=== PATIENT | female | born 1975 | race Caucasian/White ===

== ENCOUNTER 2024-09-26 09:55 | Outpatient (AMB) | payer OTHER, SELFPAY ==
[2024-09-26 10:04] VITALS: BP 108/70; PULSE 73; O2SAT 98; BMI 37.7
--- NOTE | 2024-09-26 10:04 | MHC.PC.OV ---
Vital Signs 09/26/24 10:04 Height 5 ft 3 in Weight 213 lb BMI 37.7 BP 108/70 Blood Pressure Location Lt brachial Position Sitting Pulse 73 Pulse Source Pulse Oximeter Pulse Oximetry (%) 98 Oxygen Delivery Method Room Air Intake Visit Reasons: establish care Allergies No Known Allergies Allergy (Verified 09/26/24 10:24) Medication List - Last Reconciled 09/26/24 by Elinor Willis PA-C estradiol (Yuvafem) 10 mcg vaginal 2XW Tobacco use date assessed: 09/26/24 Dental Screening Dental Screen Date: 09/26/24 Did you have a dental visit in the last 12 months?: Yes Did you have a dental problem in the last 6 months where you did not have access to dental care?: No Was dental information given to patient?: Patient has dentist HPI establish care HPI Details 49 year old female coming to the office for the 1st time. Patient states she follows with gynecology for routine Pap smears. She also follows with a weight loss doctor status post gastric sleeve who wants to start her on Mounjaro. She has not yet had a colonoscopy but was sent the Cologuard box and has not yet completed this. She mentioned she has migraines with the weather changes that typically resolve with Tylenol. She also mentioned she fell 2 years ago on ice and has had chronic back pain since it has been following with [facility] and working with physical therapy and massage therapy. She was previously on gabapentin but did not like the way she felt that this medication so is no longer taking it. [facility] Medical History (Updated 09/26/24 @ 13:13 by Elinor Willis PA-C) Asthma TIA (transient ischemic attack) Surgical History (Updated 09/26/24 @ 10:31 by Elinor Willis PA-C) Hx of cholecystectomy H/O gastric sleeve Family History (Updated 09/26/24 @ 10:34 by Elinor Willis PA-C) Father Melanoma Lewy body dementia Social History Housing: House Patient Tobacco Use Status: Never used Tobacco service: No Current occupational status: employed Cognitive needs: No Hearing needs: No Vision needs: No Female Reproductive History Menstrual control method: pills Questionnaire PHQ-9 Over the last 2 weeks, how often have you been bothered by any of the following problems? 1. Little interest or pleasure in doing things: not at all 2. Feeling down, depressed, or hopeless: not at all 3. Trouble falling or staying asleep, or sleeping too much: not at all 4. Feeling tired or having little energy: several days 5. Poor appetite or overeating: several days 6. Feeling bad about yourself - or that you are a failure or have let yourself or your family down: not at all 7. Trouble concentrating on things, such as reading the newspaper or watching television: not at all 8. Moving or speaking so slowly that other people could have noticed. Or the opposite - being so fidgety or restless that you have been moving around a lot more than usual: not at all 9. Thoughts that you would be better off or of hurting yourself in some way: not at all Total score: 2 Depression Screening Interpretation: Negative Depression Screening Done: Yes 12098 - PHQ-9 Billing: Yes Source: Developed by Drs. Michael Carpenter, Medina Grigsby, Gilberto White and colleagues, with an educational israel from [employer]. Thrive Questionnaire Date Thrive assessed: 09/24/24 I am a: Patient What is your living situation today?: I have a steady place to live Within the past 12 months, did the food you bought not last and you didn't have the money to get more?: Never true Within the past 12 months, did you worry whether your food would run out before you got money to buy more?: Never true Do you have trouble paying for medicines?: No Do you have trouble getting transportation to medical appointments?: No Do you have trouble paying your heating and electricity bill?: No Do you have trouble taking care of your child, family member or friend?: No Do you have trouble with day-to-day activities such as bathing, preparing meals, shopping, managing finances, etc.?: No Are you currently unemployed and looking for a job?: No Are you interested in more education?: No Please select the resources that you would like help with: None Currently or been in a relationship where the following occur: No concerns reported THRIVE Score: 0 AUDIT C Alcohol Use Questionnaire (AUDIT-C) 1. How often do you have a drink containing alcohol?: Monthly or less 2. How many drinks containing alcohol do you have on a typical day when you are drinking?: 1 or 2 3. How often do you have six or more drinks on one occasion?: Never Total Score: 1 WILLY-7 AMB Questionnaire WILLY-7 Date WILLY - 7 assessed: 09/26/24 Feeling nervous, anxious, or on edge: 1 = Several days Not being able to stop or control worryin = Not at all Worrying too much about different things: 0 = Not at all Trouble relaxin = Several days Being so restless that it is hard to sit still: 0 = Not at all Becoming easily annoyed or irritable: 1 = Several days Feeling afraid as if something awful might happen: 0 = Not at all Total WILLY-7 score (0-4 normal; 5-9 mild; 10-14 moderate; 15-21 severe): 3 Source: Developed by Drs. Michael Carpenter, Medina Grigsby, Gilberto White and colleagues, with an educational israel from [employer]. WILLY-7 Assessment Billing WILLY-7 Assessment Tool: WILLY-7 Assessment 55057 Review of Systems Const Denies body aches, Denies chills, Denies fever(s), Reports headache(s) and Denies poor appetite Eyes Reports no additional complaints ENT Denies dizziness and Reports headache(s) Card Denies chest pain, Denies syncope, Denies edema, Denies irregular heart rhythm, Denies lightheadedness and Denies dyspnea Resp Denies cough and Denies dyspnea GI Denies abdominal pain, Denies constipation, Denies diarrhea, Denies nausea and Denies vomiting Reports no additional complaints Musc Reports no additional complaints, Denies abnormal gait and Reports back pain Skin/Breast Reports system reviewed and no additional complaints, except as documented Neuro Denies abnormal gait, Denies dizziness, Denies syncope and Reports headache(s) Psych Reports no additional complaints Physical exam (Primary Care) Vital Signs: Last Vital Signs Pulse 73 09/26/24 10:04 BP 108/70 09/26/24 10:04 Pulse Ox 98 09/26/24 10:04 Oxygen Delivery Method Room Air 09/26/24 10:04 BMI result Body Mass Index 37.7 Tobacco/Smoking Status: Tobacco use Status Tobacco use date assessed 09/26/24 09/26/24 10:07 Patient Tobacco Use Status Never used Tobacco 09/26/24 10:07 PHQ-9: PHQ-9 Score PHQ-9: Total score 2 09/26/24 10:18 Depression Screening Interpretation: Negative Thrive Assessment: Date of Thrive Assessment Date Thrive assessed 09/24/24 09/26/24 10:07 Currently or been in a relationship where the following occur: No concerns reported Const General: cooperative, healthy appearing, comfortable and no acute distress Orientation/consciousness: patient oriented x3 HENMT Head: Yes normocephalic Ears: hearing grossly normal bilaterally General nose exam: Normal external nose present Eyes General: appearance normal, both eyes and all related structures Conjunctivae: conjunctivae normal Neck Neck: Yes full ROM and Yes no lymphadenopathy Resp Effort & Inspection: normal respiratory effort Auscultation: clear to auscultation bilaterally, no crackles, no rales, no rhonchi and no wheezes Cardio Rate: regular rate Rhythm: regular rhythm Skin General skin exam: no rashes or lesions noted Neuro General: patient oriented x3 Gait exam (Neuro): Normal gait present Extrem General: Yes normal to inspection, Yes full ROM and No edema Psych Affect: normal affect Attitude: cooperative Insight: Good insight present (Psych) Judgement: Good judgement present (Psych) Coding Level of Care Code New Pt Level 3 (20594) Diagnoses Vaginal dryness N89.8 Vitamin D deficiency E55.9 Back pain M54.9 Impaired glucose tolerance R73.02 Obesity E66.9 Screening for colorectal cancer Z12.11; Z12.12 Additional Codes WILLY-7 Assessment Billing - WILLY-7 Assessment Tool: IWLLY-7 Assessment 54469 ([id number]) PHQ-9 - 08376 - PHQ-9 Billing: Yes ([id number]) Assessment & Plan Assessment & Plan (1) Vaginal dryness: Code(s): N89.8 - Other specified noninflammatory disorders of vagina Category: Medical Plan: Continue to follow with gynecology. Currently on oral estradiol. (2) Vitamin D deficiency: Code(s): E55.9 - Vitamin D deficiency, unspecified Category: Medical Plan: Was told by her previous PCP that she has vitamin-D deficiency ordered for updated blood work. (3) Back pain: Code(s): M54.9 - Dorsalgia, unspecified Category: Medical Plan: Continue to follow with [facility] is due to finish physical therapy soon and we will re-evaluate at that time. (4) Impaired glucose tolerance: Code(s): R73.02 - Impaired glucose tolerance (oral) Category: Medical Plan: Decrease the amount of carbohydrates such as pasta, bread, rice, and potatoes and limit the amount of sweets. Although fruits are generally healthy they should be eaten in moderation as they are still high in sugar. Need to work with a and p mechanic through weight loss clinic. (5) Obesity: Code(s): E66.9 - Obesity, unspecified Category: Medical Plan: Healthy diet and regular exercise is encouraged. Continue to follow with weight loss clinic. (6) Screening for colorectal cancer: Code(s): Z12.11 - Encounter for screening for malignant neoplasm of colon; Z12.12 - Encounter for screening for malignant neoplasm of rectum Category: Medical Plan: Strongly advised patient complete the Cologuard box given to her earlier this year Plan This note was constructed using voice recognition software. While every effort has been made to ensure accuracy and catalyst operator, still areas may have been included sometimes these areas may affect the content or meeting of the given symptoms. Total time spent caring for the patient today was 30 minutes. This includes time spent before the visit reviewing the chart, time spent during the visit, and time spent after the visit and documentation. Orders: Orders Vitamin B12 and Folate Today Z00.00 - Encounter for general adult medical examination without abnormal findings Vitamin D 25-OH (D2 and D3) Today Z00.00 - Encounter for general adult medical examination without abnormal findings Complete Blood Count Auto Diff Today Z00.00 - Encounter for general adult medical examination without abnormal findings TSH reflex Free T4 Today Z00.00 - Encounter for general adult medical examination without abnormal findings Free T4 (Free Thyroxine) Today Z00.00 - Encounter for general adult medical examination without abnormal findings
== END 2024-09-26 10:46 | disposition home or self-care (01) ==
DX: N89.8 Other specified noninflammatory disorders of vagina (principal); E66.9 Obesity, unspecified; Z68.37 Body mass index [BMI] 37.0-37.9, adult; E55.9 Vitamin D deficiency, unspecified; M54.9 Dorsalgia, unspecified; R73.02 Impaired glucose tolerance (oral); Z12.11 Encounter for screening for malignant neoplasm of colon; Z12.12 Encounter for screening for malignant neoplasm of rectum

== ENCOUNTER 2024-09-26 09:55 | Outpatient (REF) | payer OTHER, SELFPAY ==
[2024-09-26 12:06] LABS: Free T4 (Free Thyroxine) 0.92 ng/dL (0.71-1.85); TSH reflex Free T4 1.98 uIU/mL (0.32-4.0)
[2024-09-26 12:19] LABS: Folate 11.5 ng/mL (> or = 4.0); Vitamin B12 354 pg/mL (200-900)
[2024-10-03 17:24] LABS: Vitamin D 25-OH, D2 <4 ng/mL; Vitamin D 25-OH, D3 34 ng/mL; Vitamin D 25-OH, Total 34 ng/mL (30-100)
== END 2024-09-26 09:56 | disposition home or self-care (01) ==
LOC: HO.LAB 09:55
DX: N89.8 Other specified noninflammatory disorders of vagina (principal); E55.9 Vitamin D deficiency, unspecified; M54.9 Dorsalgia, unspecified; R73.02 Impaired glucose tolerance (oral); E66.9 Obesity, unspecified; Z68.37 Body mass index [BMI] 37.0-37.9, adult; Z00.00 Encounter for general adult medical examination without abnormal findings
CPT/HCPCS: 36415; 82306; 82607; 82746; 84439; 84443; 96127

== ENCOUNTER 2024-12-30 08:35 | Outpatient (AMB) | payer OTHER, SELFPAY ==
--- NOTE | 2024-12-30 08:49 | MHC.PC.OV ---
Vital Signs 12/30/24 08:52 Height 5 ft 3 in Weight 187 lb 2 oz BMI 33.1 BP 130/66 Blood Pressure Location Lt brachial Position Sitting Pulse 85 Pulse Source Pulse Oximeter Temp 97.1 F Temp Source Skin Pulse Oximetry (%) 98 Oxygen Delivery Method Room Air Intake Visit Reasons: Annual Exam Intake Note: Patient is here today for a physical. Care Transitions Nurse Required: No Freelance Recruiter: Not Required per policy Accompanied by: Self / Same As Patient Allergies No Known Allergies Allergy (Verified 12/30/24 09:06) Medication List - Last Reconciled 12/30/24 by Elinor Willis PA-C estradiol (Yuvafem) 10 mcg vaginal 2XW ondansetron 4 mg PO Q8H tirzepatide (Mounjaro) 5 mg subcut QWEEK Tobacco use date assessed: 12/30/24 Dental Screening Dental Screen Date: 12/30/24 Did you have a dental visit in the last 12 months?: Yes Did you have a dental problem in the last 6 months where you did not have access to dental care?: No Was dental information given to patient?: Patient has dentist HPI Annual Exam HPI Details 49-year-old female with past medical history impaired glucose tolerance, obesity, vitamin-D deficiency, vaginal dryness last seen 09/2024 coming in for annual exam. Patient tells us today she recently was started on Mounjaro 2.5 mg through a med spa and has been following with a provider every 4 weeks for this. She does mentioned she has been having increased lightheadedness and dizziness since starting the Mounjaro and states she does not drink enough water or eat enough throughout the day. [facility] Medical History Asthma TIA (transient ischemic attack) Surgical History Hx of cholecystectomy H/O gastric sleeve Family History Father Melanoma Lewy body dementia Social History Housing: House Alcohol intake: never Patient Tobacco Use Status: Never used Tobacco e-Cigarette/Vaping Use: Never Used Second Hand Smoke Exposure: No service: No Current occupational status: employed Cognitive needs: No Hearing needs: No Vision needs: No Questionnaire PHQ-9 Over the last 2 weeks, how often have you been bothered by any of the following problems? 1. Little interest or pleasure in doing things: not at all 2. Feeling down, depressed, or hopeless: not at all 3. Trouble falling or staying asleep, or sleeping too much: several days 4. Feeling tired or having little energy: several days 5. Poor appetite or overeating: several days 6. Feeling bad about yourself - or that you are a failure or have let yourself or your family down: not at all 7. Trouble concentrating on things, such as reading the newspaper or watching television: not at all 8. Moving or speaking so slowly that other people could have noticed. Or the opposite - being so fidgety or restless that you have been moving around a lot more than usual: not at all 9. Thoughts that you would be better off or of hurting yourself in some way: not at all Total score: 3 Depression Screening Interpretation: Positive Depression Screening Follow-up: Existing condition and Declines treatment Depression Screening Done: Yes Source: Developed by Drs. Michael Carpenter, Medina Grigsby, Gilberto White and colleagues, with an educational israel from [employer]. Thrive Questionnaire Date Thrive assessed: 12/23/24 I am a: Patient What is your living situation today?: I have a steady place to live Within the past 12 months, did the food you bought not last and you didn't have the money to get more?: Never true Within the past 12 months, did you worry whether your food would run out before you got money to buy more?: Never true Do you have trouble paying for medicines?: No Do you have trouble getting transportation to medical appointments?: No Do you have trouble paying your heating and electricity bill?: No Do you have trouble taking care of your child, family member or friend?: No Do you have trouble with day-to-day activities such as bathing, preparing meals, shopping, managing finances, etc.?: No Are you currently unemployed and looking for a job?: No Are you interested in more education?: No Please select the resources that you would like help with: None Currently or been in a relationship where the following occur: No concerns reported THRIVE Score: 0 AUDIT C Alcohol Use Questionnaire (AUDIT-C) 1. How often do you have a drink containing alcohol?: Monthly or less 2. How many drinks containing alcohol do you have on a typical day when you are drinking?: 1 or 2 3. How often do you have six or more drinks on one occasion?: Never Total Score: 1 WILLY-7 AMB Questionnaire WILLY-7 Date WILLY - 7 assessed: 12/30/24 Feeling nervous, anxious, or on edge: 1 = Several days Not being able to stop or control worryin = Not at all Worrying too much about different things: 1 = Several days Trouble relaxin = Several days Being so restless that it is hard to sit still: 0 = Not at all Becoming easily annoyed or irritable: 1 = Several days Feeling afraid as if something awful might happen: 0 = Not at all Total WILLY-7 score (0-4 normal; 5-9 mild; 10-14 moderate; 15-21 severe): 4 Source: Developed by Drs. Michael Carpenter, Medina Grigsby, Gilberto Whtie and colleagues, with an educational israel from [employer]. WILLY-7 Assessment Billing WILLY-7 Assessment Tool: WILLY-7 Assessment 60459 Review of Systems Const Denies body aches, Denies chills, Denies fever(s), Denies headache(s) and Denies poor appetite Eyes Reports no additional complaints and Reports blurry vision ENT Denies dysphagia, Denies dizziness, Denies headache(s) and Denies odynophagia Card Denies chest pain, Denies syncope, Denies edema, Denies irregular heart rhythm, Denies lightheadedness and Denies dyspnea Resp Denies cough and Denies dyspnea GI Denies abdominal pain, Reports constipation, Denies dysphagia, Denies diarrhea, Reports nausea, Denies odynophagia and Denies vomiting Reports no additional complaints Musc Reports no additional complaints and Denies abnormal gait Skin/Breast Reports system reviewed and no additional complaints, except as documented Neuro Denies abnormal gait, Denies dizziness, Denies syncope and Denies headache(s) Psych Reports no additional complaints Physical exam (Primary Care) Vital Signs: Last Vital Signs Temp 97.1 F 12/30/24 08:52 Pulse 85 12/30/24 08:52 BP 130/66 12/30/24 08:52 Pulse Ox 98 12/30/24 08:52 Oxygen Delivery Method Room Air 12/30/24 08:52 BMI result Body Mass Index 33.1 Tobacco/Smoking Status: Tobacco use Status Tobacco use date assessed 12/30/24 12/30/24 08:58 Patient Tobacco Use Status Never used Tobacco 12/30/24 08:56 e-Cigarette/Vaping Use Never Used 12/30/24 08:58 PHQ-9: PHQ-9 Score PHQ-9: Total score 3 12/30/24 09:19 Depression Screening Interpretation: Positive Depression Screening Follow-up: Existing condition and Declines treatment Thrive Assessment: Date of Thrive Assessment Date Thrive assessed 12/23/24 12/30/24 08:50 Currently or been in a relationship where the following occur: No concerns reported Const General: cooperative, healthy appearing, comfortable and no acute distress Orientation/consciousness: patient oriented x3 HENMT Head: Yes normocephalic Ears: hearing grossly normal bilaterally General nose exam: Normal external nose present Eyes General: appearance normal, both eyes and all related structures Conjunctivae: conjunctivae normal Neck Neck: Yes full ROM and Yes no lymphadenopathy Resp Effort & Inspection: normal respiratory effort Auscultation: clear to auscultation bilaterally, no crackles, no rales, no rhonchi and no wheezes Cardio Rate: regular rate Rhythm: regular rhythm Skin General skin exam: no rashes or lesions noted Neuro General: patient oriented x3 Gait exam (Neuro): Normal gait present Extrem General: Yes normal to inspection, Yes full ROM and No edema Psych Affect: normal affect Attitude: cooperative Insight: Good insight present (Psych) Judgement: Good judgement present (Psych) Coding Level of Care Code Est Pt Prev Care 40-64y(99488) Diagnoses Constipation K59.00 Screening for colorectal cancer Z12.11; Z12.12 Vaginal dryness N89.8 Vitamin D deficiency E55.9 Impaired glucose tolerance R73.02 Obesity E66.9 Annual physical exam Z00.00 Additional Codes WILLY-7 Assessment Billing - WILLY-7 Assessment Tool: WILLY-7 Assessment 56515 ([id number]) Assessment & Plan Assessment & Plan (1) Constipation: Code(s): K59.00 - Constipation, unspecified Category: Medical Plan: 3 rows of constipation include increase water intake, increase fiber intake and exercise as tolerated. May use Colace and/or senna as needed (2) Screening for colorectal cancer: Code(s): Z12.11 - Encounter for screening for malignant neoplasm of colon; Z12.12 - Encounter for screening for malignant neoplasm of rectum Category: Medical Plan: Patient had Cologuard box but it placed new order today. (3) Vaginal dryness: Code(s): N89.8 - Other specified noninflammatory disorders of vagina Category: Medical Plan: Continue to follow with gynecology on estradiol. (4) Vitamin D deficiency: Code(s): E55.9 - Vitamin D deficiency, unspecified Category: Medical Plan: On vitamin-D [id number] continue to monitor with labs (5) Impaired glucose tolerance: Code(s): R73.02 - Impaired glucose tolerance (oral) Category: Medical Plan: Decrease the amount of carbohydrates such as pasta, bread, rice, and potatoes and limit the amount of sweets. Although fruits are generally healthy they should be eaten in moderation as they are still high in sugar. (6) Obesity: Code(s): E66.9 - Obesity, unspecified Category: Medical Plan: Healthy diet and regular exercise is encouraged. Currently on Mounjaro through a med spa and following with her provider every 4 months. Regarding abdominal pain in relation to the Mounjaro advised patient to follow up with her provider to discuss these side effects. (7) Annual physical exam: Code(s): Z00.00 - Encounter for general adult medical examination without abnormal findings Category: Medical Plan: Patient is not up-to-date on all recommended routine screenings and vaccinations for her age. She is overdue for flu and tetanus which were declined today. She is also overdue for her colorectal cancer screening has not yet completed her Cologuard box. Strongly advised patient to have this completed. Mammogram is up-to-date as well as her Pap smear. Ordered for additional blood work. Plan This note was constructed using voice recognition software. While every effort has been made to ensure accuracy and fence supervisor, still areas may have been included sometimes these areas may affect the content or meeting of the given symptoms. Total time spent caring for the patient today was 30 minutes. This includes time spent before the visit reviewing the chart, time spent during the visit, and time spent after the visit and documentation. Orders: Orders Complete Blood Count Auto Diff Today Z00.00 - Encounter for general adult medical examination without abnormal findings Comprehensive Met. Panel Today Z00.00 - Encounter for general adult medical examination without abnormal findings Referrals Optometry Referral Z00.00 - Encounter for general adult medical examination without abnormal findings Cologuard Test Z12.11 - Encounter for screening for malignant neoplasm of colon
[2024-12-30 08:52] VITALS: BP 130/66; PULSE 85; TEMP 36.2; O2SAT 98; BMI 33.1
== END 2024-12-30 09:35 | disposition home or self-care (01) ==
DX: Z00.00 Encounter for general adult medical examination without abnormal findings (principal); K59.00 Constipation, unspecified; E66.9 Obesity, unspecified; Z68.33 Body mass index [BMI] 33.0-33.9, adult; Z12.11 Encounter for screening for malignant neoplasm of colon; Z12.12 Encounter for screening for malignant neoplasm of rectum; N89.8 Other specified noninflammatory disorders of vagina; E55.9 Vitamin D deficiency, unspecified; R73.02 Impaired glucose tolerance (oral)

== ENCOUNTER → 2024-12-30 08:35 | Outpatient (BNVA) | payer OTHER, SELFPAY | DX: Z00.00 Encounter for general adult medical examination without abnormal findings (principal); K59.00 Constipation, unspecified; N89.8 Other specified noninflammatory disorders of vagina; E55.9 Vitamin D deficiency, unspecified; R73.02 Impaired glucose tolerance (oral); E66.9 Obesity, unspecified; Z68.33 Body mass index [BMI] 33.0-33.9, adult | CPT/HCPCS: 96127 ==

== ENCOUNTER 2025-07-02 08:26 | Outpatient (AMB) | payer OTHER, SELFPAY ==
[2025-07-02 08:48] VITALS: BP 98/58; PULSE 76; O2SAT 99; BMI 26.6
--- NOTE | 2025-07-02 08:48 | A.OFFPC_ITS ---
Vital Signs 07/02/25 08:48 Height 5 ft 3 in Weight 150 lb 2 oz BMI 26.6 BP 98/58 L Blood Pressure Location Lt brachial Position Sitting Pulse 76 Pulse Source Pulse Oximeter Pulse Oximetry (%) 99 Oxygen Delivery Method Room Air Intake Visit Reasons: 6 month follow up Residential Collections Required: No Accompanied by: Self / Same As Patient Allergies No Known Allergies Allergy (Verified 07/02/25 08:50) Medication List - Last Reviewed 07/02/25 by Tabby Davis MA estradiol (Yuvafem) 10 mcg vaginal 2XW scopolamine base 1 patch transdermal Q3D PRN tirzepatide (Mounjaro) 5 mg subcut QWEEK Tobacco use date assessed: 07/02/25 Dental Screening Dental Screen Date: 07/02/25 Did you have a dental visit in the last 12 months?: No Did you have a dental problem in the last 6 months where you did not have access to dental care?: No Was dental information given to patient?: No HPI 6 month follow up HPI Details 50-year-old female with past medical his tory impaired glucose tolerance, obesity, vitamin-D deficiency, vaginal dryness last seen 12/2024 coming in for follow up.? Presenting with anxiety and weight management concerns. The patient reports experiencing anxiety attacks, which she had not experienced in a long time, triggered by her 's recent injury and subsequent surgery. She describes the anxiety as severe enough to cause her to feel as though she was dying, although she manages it with breathing exercises and yoga. The patient has been managing constipation with stool softeners and MiraLax as needed. The patient has lost 37 pounds and is currently at a BMI of 26, with a target weight in the low 140s. [facility] Medical History Asthma TIA (transient ischemic attack) Surgical History Hx of cholecystectomy H/O gastric sleeve Family History Father Melanoma Lewy body dementia Social History Housing: House Alcohol intake: never Patient Tobacco Use Status: Never used Tobacco e-Cigarette/Vaping Use: Never Used Second Hand Smoke Exposure: No service: No Current occupational status: employed Cognitive needs: No Hearing needs: No Vision needs: No Questionnaire Thrive Questionnaire Date Thrive assessed: 12/23/24 I am a: Patient What is your living situation today?: I have a steady place to live Within the past 12 months, did the food you bought not last and you didn't have the money to get more?: Never true Within the past 12 months, did you worry whether your food would run out before you got money to buy more?: Never true Do you have trouble paying for medicines?: No Do you have trouble getting transportation to medical appointments?: No Do you have trouble paying your heating and electricity bill?: No Do you have trouble taking care of your child, family member or friend?: No Do you have trouble with day-to-day activities such as bathing, preparing meals, shopping, managing finances, etc.?: No Are you currently unemployed and looking for a job?: No Are you interested in more education?: No Please select the resources that you would like help with: None Currently or been in a relationship where the following occur: No concerns reported THRIVE Score: 0 WILLY-7 AMB Questionnaire WILLY-7 Date WILLY - 7 assessed: 12/30/24 Source: Developed by Drs. Michael Carpenter, Medina Grigsby, Gilberto White and colleagues, with an educational israel from [employer]. Review of Systems Const Denies chills, Denies fever(s) and Denies poor appetite Eyes Reports no additional complaints ENT Denies dizziness Card Denies chest pain, Denies edema, Denies lightheadedness and Denies dyspnea Resp Denies cough and Denies dyspnea GI Denies abdominal pain, Reports constipation, Denies diarrhea, Reports nausea (while on the cruise) and Denies vomiting Reports no additional complaints Musc Reports no additional complaints and Denies abnormal gait Skin/Breast Reports system reviewed and no additional complaints, except as documented Neuro Denies abnormal gait and Denies dizziness Psych Reports no additional complaints Physical exam (Primary Care) Tobacco/Smoking Status: Tobacco use Status Tobacco use date assessed 12/30/24 12/30/24 08:58 Patient Tobacco Use Status Never used Tobacco 12/30/24 08:56 e-Cigarette/Vaping Use Never Used 12/30/24 08:58 Thrive Assessment: Date of Thrive Assessment Date Thrive assessed 12/23/24 12/30/24 08:50 Currently or been in a relationship where the following occur: No concerns reported Const General: cooperative, healthy appearing, comfortable and no acute distress Orientation/consciousness: patient oriented x3 HENMT Head: Yes normocephalic Ears: hearing grossly normal bilaterally General nose exam: Normal external nose present Eyes General: appearance normal, both eyes and all related structures Conjunctivae: conjunctivae normal Neck Neck: Yes full ROM and Yes no lymphadenopathy Resp Effort & Inspection: normal respiratory effort Auscultation: clear to auscultation bilaterally, no crackles, no rales, no rhonchi and no wheezes Cardio Rate: regular rate Rhythm: regular rhythm Skin General skin exam: no rashes or lesions noted Neuro General: patient oriented x3 Gait exam (Neuro): Normal gait present Extrem General: Yes normal to inspection, Yes full ROM and No edema Psych Affect: normal affect Attitude: cooperative Insight: Good insight present (Psych) Judgement: Good judgement present (Psych) Coding Level of Care Code Est Pt Level 3 (77926) Diagnoses Impaired glucose tolerance R73.02 Obesity E66.9 Hypotension I95.9 Constipation K59.00 Anxiety F41.9 Assessment & Plan Assessment & Plan (1) Impaired glucose tolerance: Code(s): R73.02 - Impaired glucose tolerance (oral) Category: Medical Plan: Decrease the amount of carbohydrates such as pasta, bread, rice, and potatoes and limit the amount of sweets. Although fruits are generally healthy they should be eaten in moderation as they are still high in sugar. (2) Obesity: Code(s): E66.9 - Obesity, unspecified Category: Medical Plan: Healthy diet and regular exercise is encouraged. Noted 37 lb weight loss since last visit. (3) Hypotension: Code(s): I95.9 - Hypotension, unspecified Category: Medical Plan: Pressure is low at 90/58 patient is asymptomatic at this time. She does endorse drinking plenty of water typically will fill her Tian cup 4-5 times per day. I did order for blood work for further evaluation advised patient to continue with fluid intake. She does have a monitor at home and agrees to take the blood pressure 3 times per week and reach out to the office with values. Reviewed red flag symptoms and when to present for re-evaluation (4) Constipation: Code(s): K59.00 - Constipation, unspecified Category: Medical Plan: Currently using a stool softener and MiraLax as needed. (5) Anxiety: Code(s): F41.9 - Anxiety disorder, unspecified Category: Medical Plan: Patient having intermittent anxiety more recently due to family stress. She is declining medical management or counseling at this time. Continue with conservative measures Plan The patient will continue managing anxiety through non-pharmacological methods such as yoga and breathing exercises, as she feels these are effective. For nausea, she is advised to take her nausea medication as needed, especially during travel or when anxiety peaks. Vision changes will be monitored with regular eye examinations, and she will continue using reading glasses as needed. Constipation management will continue with stool softeners and MiraLax as necessary. Weight management will focus on maintaining her current weight loss and reaching her target BMI through continued lifestyle modifications. This note was constructed using voice recognition software. While every effort has been made to ensure accuracy and social work msw, still areas may have been included sometimes these areas may affect the content or meeting of the given symptoms. Total time spent caring for the patient today was 30 minutes. This includes time spent before the visit reviewing the chart, time spent during the visit, and time spent after the visit and documentation. Patient was informed and verbally consented to the use of an ambient scribe for clinic note documentation during this visit. Orders: Orders Comprehensive Met. Panel Today R73.02 - Impaired glucose tolerance (oral), Z00.00 - Encounter for general adult medical examination without abnormal findings TSH reflex Free T4 Today Z13.29 - Encounter for screening for other suspected endocrine disorder Vitamin D 25-OH Total Today Z13.21 - Encounter for screening for nutritional disorder Lipid Panel Today Z13.220 - Encounter for screening for lipoid disorders Complete Blood Count Auto Diff Today E66.9 - Obesity, unspecified, Z00.00 - Encounter for general adult medical examination without abnormal findings Vitamin B12 and Folate Today Z13.21 - Encounter for screening for nutritional disorder
== END 2025-07-02 09:10 | disposition home or self-care (01) ==
LOC: HO.HMCH 08:27
DX: R73.02 Impaired glucose tolerance (oral) (principal); E66.9 Obesity, unspecified; Z68.26 Body mass index [BMI] 26.0-26.9, adult; I95.9 Hypotension, unspecified; K59.00 Constipation, unspecified; F41.9 Anxiety disorder, unspecified

== ENCOUNTER 2025-11-10 08:56 | Outpatient (AMB) | payer OTHER, SELFPAY ==
[2025-11-10 09:47] VITALS: BP 96/58; PULSE 69; O2SAT 97; BMI 25.2
--- NOTE | 2025-11-10 09:47 | AM.OFFWIN_ITS ---
Intake Vital Signs 11/10/25 09:47 Height 5 ft 3 in Weight 142 lb BMI 25.2 BP 96/58 L Blood Pressure Location Lt brachial Position Sitting Pulse 69 Pulse Source Pulse Oximeter Pulse Oximetry (%) 97 Oxygen Delivery Method Room Air Intake Visit Reasons: EP Right eye irritation/itchiness Intake Note: Patient presents c/o right eye redness & irritation x couple days & worsened yesterday, also spreading to left eye now. Patient Tobacco Use Status: Never used Tobacco Allergies No Known Allergies Allergy (Verified 11/10/25 09:50) Medication List - Last Reconciled 11/10/25 by Mirta Burch NP ciprofloxacin HCl 0.3% Put 1-2 drops in the affected eye every 2hr up to 8 times per day for 2 days; then 4 times per day for 7 days. estradiol (Yuvafem) 10 mcg vaginal 2XW loratadine-pseudoephedrine 10-240 mg ER (Claritin-D 24 Hour) 1 tab PO DAILY scopolamine base 1 patch transdermal Q3D PRN tirzepatide (Mounjaro) 5 mg subcut QWEEK HPI HPI Comments History of Present Illness Details 50-year-old female presents to the walk- in clinic with complaints of right eye redness and irritation for the past couple of days. She reports that symptoms worsened since yesterday and are now spreading to the left eye. Patient states she woke up this morning with her eye ?closed shut? due to crusting discharge around the eye. Denies eye pain, vision changes, photophobia, or foreign body sensation. Denies URI symptoms including cough, congestion, sore throat, or fever. Denies recent sick contacts. No history of contact lens use reported. [facility] Medical History (Updated 11/10/25 @ 10:35 by Mirta Burch NP) Bacterial conjunctivitis of right eye Asthma TIA (transient ischemic attack) Surgical History Hx of cholecystectomy H/O gastric sleeve Family History Father Melanoma Lewy body dementia Social History Housing: House Alcohol intake: never Patient Tobacco Use Status: Never used Tobacco e-Cigarette/Vaping Use: Never Used Second Hand Smoke Exposure: No service: No Current occupational status: employed Cognitive needs: No Hearing needs: No Vision needs: No Review of Systems Const All systems reviewed & are unremarkable except as noted in HPI and below Physical Exam Vital Signs: Last Vital Signs Pulse 69 11/10/25 09:47 BP 96/58 L 11/10/25 09:47 Pulse Ox 97 11/10/25 09:47 Oxygen Delivery Method Room Air 11/10/25 09:47 BMI result Body Mass Index 25.2 Const General: no acute distress Nutritional Appearance: well nourished Orientation/consciousness: patient oriented x3 HEENT Head: Yes normocephalic Ears: external ears normal and TM abnormal with fluid behind the TM General nose exam: Abnormal mucous membranes and turbinates present boggy and pale Face and sinus: Yes sinuses nontender Mouth: moist mucous membranes Throat: Yes uvula midline Eyes Eyelids: Yes eyelids normal Conjunctivae: conjunctival abnormal right conjunctival injection diffuse and discharge Pupils: Equal, round and reactive pupils present EOM: EOMs intact bilaterally Direct Ophthalmoscopy: normal light reflex, no photophobia and no papilledema Resp Effort & Inspection: normal respiratory effort Auscultation: clear to auscultation bilaterally Cardio Heart sounds: S1 normal heart sound present and S2 normal heart sound present Neuro General: patient oriented x3 Cranial nerves: Yes Equal, round and reactive pupils present Assessment & Plan Assessment & Plan (1) Bacterial conjunctivitis of right eye: Code(s): H10.9 - Unspecified conjunctivitis Plan: Acute conjunctivitis, likely bacterial given crusting discharge and bilateral spread. Ordered antibiotic ophthalmic drops Apply warm compresses to eyes several times daily Emphasized good hand hygiene and avoid touching or rubbing eyes Avoid eye makeup and discard any recently used eye products Instructed patient to avoid sharing towels or linens Return precautions discussed: worsening redness, eye pain, vision changes, swelling, or no improvement within 48?72 hours Follow up with PCP or ophthalmology if symptoms persist or worsen Medications: New ciprofloxacin HCl 0.3% Put 1-2 drops in the affected eye every 2hr up to 8 times per day for 2 days; then 4 times per day for 7 days. 10 mL 0RF Coding Level of Care Code Est Pt Level 4 (13722) Diagnoses Bacterial conjunctivitis of right eye H10.9 Time Spent (min) 20
== END 2025-11-10 10:35 | disposition home or self-care (01) ==
PROVIDERS: Visit Provider Nurse Practitioner Family
DX: H10.9 Unspecified conjunctivitis (principal)